=== PATIENT | female | born 1965 ===

== ENCOUNTER 2018-06-26 10:02 | Outpatient (CLI) | payer MEDICAID ==
[2018-06-26 10:40] LABS: BASOPHILS % (AUTO) 1.1 % (0.0-2.0); EOSINOPHILS % (AUTO) 1.4 % (0.0-3.0); HEMATOCRIT 44.3 % (37.0-47.0); HEMOGLOBIN 14.5 G/DL (12.0-16.0); LYMPHOCYTES % (AUTO) 29.5 % (20.0-45.0); MEAN CORPUSCULAR VOLUME 89 FL (80-99); MONOCYTES % (AUTO) 7.2 % (1.0-10.0); NEUTROPHILS % (AUTO) 60.8 % (45.0-75.0); PLATELET COUNT 360 K/UL (150-450); RED BLOOD COUNT 4.96 M/UL (4.20-5.40); WHITE BLOOD COUNT 5.8 K/UL (4.8-10.8)
[2018-06-26 10:53] LABS: ANION GAP 12 mmol/L (5-15); BLOOD UREA NITROGEN 12 mg/dL (7-18); CALCIUM 9.3 MG/DL (8.5-10.1); CARBON DIOXIDE 30 MMOL/L (21-32); CHLORIDE 102 MMOL/L (98-107); CREATININE 0.7 MG/DL (0.55-1.30); POTASSIUM 4.1 MMOL/L (3.5-5.1); SODIUM 144 MMOL/L (136-145)
[2018-06-26 10:56] LABS: APPEARANCE,URINE CLEAR; BILIRUBIN, URINE NEGATIVE (NEGATIVE); COLOR,URINE PALE YELLOW; GLUCOSE, URINE (UA) NEGATIVE (NEGATIVE); KETONES,URINE NEGATIVE (NEGATIVE); LEUKOCYTE ESTERASE ,URINE 2+ (NEGATIVE); NITRITE,URINE NEGATIVE (NEGATIVE); PH,URINE 5 (4.5-8.0); PROTEIN,URINE NEGATIVE (NEGATIVE); UROBILINOGEN,URINE NORMAL MG/DL (0.0-1.0)
== END 2018-06-26 12:02 | disposition home or self-care (01) ==
LOC: EDBD → RAD 10:02
DX: Z01.818 Encounter for other preprocedural examination (principal)
CPT/HCPCS: 36415; 80048; 81001; 85025; 85610; 85730; 93005

== ENCOUNTER 2018-07-01 09:01 | Inpatient (IN) | payer MEDICAID ==
--- NOTE | 2018-06-30 17:30 | Pre-op HX & Phy Repo 2 SIG ---
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 The patient presented earlier this year with left breast pain and screening mammogram was negative, but ultrasound revealed a 1 cm mass of the left breast at 12 o'clock located 1 cm from the nipple. Core biopsy revealed invasive ductal carcinoma and ductal carcinoma in situ. The lesion is estrogen and progesterone receptor positive and HER2 negative. She was seen in consultation with Oncology who recommended proceeding with surgery with additional therapy to be determined based on final pathology. She understands that the nipple/areola complex will need to be resected as the lesion is directly behind the nipple. PAST MEDICAL HISTORY: MEDICATIONS: None. ALLERGIES: None. OPERATIONS: section and cholecystectomy. REVIEW OF SYSTEMS: 4, para 4. She still has regular menstrual periods. FAMILY HISTORY: She has no family history of breast cancer. PHYSICAL EXAMINATION: GENERAL: The patient is 5 foot 3 inches, 173 pounds. VITAL SIGNS: Stable, normal vital signs. HEENT: Within normal limits. LUNGS: Clear. HEART: Regular rhythm. BREASTS: Moderately large and ptotic. There is no palpable mass in either breast. There is no palpable axillary or supraclavicular lymphadenopathy. ABDOMEN: Soft. PELVIC AND RECTAL: Per primary care physician. EXTREMITIES: Without edema. NEUROLOGIC: Physiologic. IMPRESSION: Invasive ductal carcinoma and ductal carcinoma in situ, left breast, ER and [place] positive, HER2 negative. PLAN: I have had a full discussion with the patient regarding the nature of her condition, the nature of the surgery including removal of the nipple/ areola complex, indications, alternatives, options and risks including bleeding, infection, need for additional surgery based on final pathology, scott for additional treatments including radiation and chemotherapy based on final pathology, deformity of the breast, scarring etc. The patient understands and agrees to proceed. The procedure will include left breast partial mastectomy including nipple, with preoperative needle localization. and left axillary lymph node biopsy. Umair Shi M.D. DR: ARMANDO JOB#: [id number] CC: GINETTE
[2018-07-01] VITALS (13 sets, daily range): BP systolic 111–151; BP diastolic 61–86
[~2018-07-01] VITALS: Ht 154.9 cm; Wt 77.7 kg
[~2018-07-01 09:01] MED LIST: Bacitracin 50000 Units Vial ONE
[2018-07-01] MEDS ORDERED: Lidocaine 1% Plain 30 ml INJ ONE (09:20)
[2018-07-01] MEDS ORDERED: Dexamethasone 4mg/ml vial ONE (09:22)
[2018-07-01] MEDS ORDERED: Lidocaine 1% MPF 10mg/ml 5ml ONE ×2 (09:22→11:18)
[2018-07-01] MEDS ORDERED: Sodium Chloride 10ml vial INJ ONE (09:22)
[2018-07-01] MEDS ORDERED: fentaNYL 100 mcg/2 mL IV ONE (09:33)
--- NOTE | 2018-07-01 09:34 | Pre-Procedure Note/Attestation ---
Pre-Procedure Note/Attestation Complete Prior to Procedure Planned Procedure: left Procedure Narrative: left breast partial mastectomy including nipple/areola complex with pre-op needle localization and left axillary lymph node biopsy Indications for Procedure Pre-Operative Diagnosis: invasive ductal carcinoma left breast Attestation I attest that I discussed the nature of the procedure; its benefits; risks and complications; and alternatives (and the risks and benefits of such alternatives ), prior to the procedure, with the patient (or the patient's legal associate sales representative). I attest that, if there was a reasonable possibility of needing a blood transfusion, the patient (or the patient's legal associate sales representative) was given the [place] [employer] standardized written summary, pursuant to the Francisco Emelia Blood Safety Act ([place] Health and Safety Code # 1645, as amended). I attest that I re-evaluated the patient just prior to the surgery and that there has been no change in the patient's H&P, except as documented below: none Umair Shi MD Jul 01, 2018 09:34
--- NOTE | 2018-07-01 09:51 | Anethesia Preoperative Eval ---
Anesthesia Pre-op PMH/ROS General Date of Evaluation: Jul 01, 2018 Time of Evaluation: 09:51 Anesthesiologist: Edu ASA Score: ASA 3 Mallampati Score Class I : Soft palate, uvula, fauces, pillars visible Class II: Soft palate, uvula, fauces visible Class III: Soft palate, base of uvula visible Class IV: Only hard plate visible Mallampati Classification: Class II Surgeon: Yuridia Diagnosis: L Breast CA Surgical Procedure: L Breasr Partial Masectectomy Anesthesia History: none Family History: no anesthesia problems Allergies: Coded Allergies: No Known Allergies (Unverified , 07/01/18) Medications: see eMAR Patient NPO?: Yes Past Medical History Gastrointestinal/Genitourinary: Reports: GERD Neurologic/Psychiatric: Reports: depression/anxiety, other - Migranes Hematology/Immune: Reports: other - L Breast CA Other: obesity - BMI 34 PSxH Narrative: Cholecystectomy Anesthesia Pre-op Phys. Exam Physician Exam Constitutional: NAD Neurologic: CN 2-12 intact Cardiovascular: RRR Respiratory: CTA Gastrointestinal: S/NT/ND Airway Exam Mallampati Score: Class II MO: full ROM: full Teeth: missing, intact Anesthesia Pre-op A/P Risk Assessment & Plan Assessment: ASA 3 Plan: GA, SED Status Change Before Surgery: No Pre-Antibiotics Dru Gram Ancef IV Given Within 1 Hr of Incision: Yes Time Given: 10:06 Yazan Sorensen MD Jul 01, 2018 09:51
--- NOTE | 2018-07-01 09:53 | Immediate Post-Op Evaluation ---
Immediate Post-Op Evalulation Immediate Post-Op Evalulation Procedure: L Breast Partial Mastectomy Date of Evaluation: Jul 01, 2018 Time of Evaluation: 12:14 IV Fluids: 600 LR Blood Products: 0 Estimated Blood Loss: 25 Urinary Output: 0 Blood Pressure Systolic: 133 Blood Pressure Diastolic: 86 Pulse Rate: 78 Respiratory Rate: 16 O2 Sat by Pulse Oximetry: 100 Temperature (Fahrenheit): 97 Pain Score (1-10): 2 Nausea: No Vomiting: No Complications 0 Patient Status: awake, reacts, patent, none Hydration Status: adequate Dru Gram Ancef IV Given Within 1 Hr of Incision: Yes Time Given: 10:06 Yazan Sorensen MD Jul 01, 2018 09:53
[2018-07-01] MEDS ORDERED: NKM (09:58)
[2018-07-01] MEDS ORDERED: Sterile Water Irrig 1000ml IRRIG ONE (10:00)
[2018-07-01] MEDS ORDERED: Propofol 1,000mg/ 100ml btl IV ONE (10:00)
[2018-07-01] MEDS ORDERED: NS Irrig 1000ml ONE (10:00)
[2018-07-01] MEDS ORDERED: LR 1000ml ONE (10:00)
[2018-07-01] MEDS ORDERED: LR 1000ml 1,000 ML IVLG SCH (10:25)
[2018-07-01] MEDS ORDERED: Atropine Sulfate 0.4mg/ml inj IVP PRN (10:30)
[2018-07-01] MEDS ORDERED: DiphenhydrAMINE 50mg/ml Inj IVP PRN (10:30)
[2018-07-01] MEDS ORDERED: Acetaminophen (Non formulary) 100 ML IV ONE (10:30)
[2018-07-01] MEDS ORDERED: oxyCODONE HCL/Acetaminophen 5/325mg ORAL PRN (10:30)
[2018-07-01] MEDS ORDERED: Ketorolac 30mg Inj IV PRN ×2 (10:30)
[2018-07-01] MEDS ORDERED: HYDROcodone/Acetamin 5/325 tab ORAL PRN ×2 (10:30→12:00)
[2018-07-01] MEDS ORDERED: Midazolam 2mg/2ml Inj IVP PRN (10:30)
[2018-07-01] MEDS ORDERED: Meperidine 50mg/ml Inj(FOR RIGORS ONLY) IVP PRN (10:30)
[2018-07-01] MEDS ORDERED: fentaNYL 100 mcg/2 mL IV PRN (10:30)
[2018-07-01] MEDS ORDERED: Hydromorphone 0.5mg/0.5ml inj IVP PRN (10:30)
[2018-07-01] MEDS ORDERED: HYDROcodone/Acetamin 7.5/325 tab ORAL PRN (10:30)
[2018-07-01] MEDS ORDERED: LORazepam Inj 2mg/ml 1ml IV PRN (10:30)
[2018-07-01] MEDS ORDERED: HYDROmorphone 1mg/ml Carpuject SUBQ PRN (12:00)
--- NOTE | 2018-07-01 12:17 | Brief Operative Note ---
Immediate Post Operative Note Operative Note Pre-op Diagnosis: invasive ductal carcinoma left breast Procedure: right breast partial mastectomy with pre-op needle localization and left axillary lymph node dissection Post-op Diagnosis: same Post-op Diagnosis: same as pre-op Findings: consistent w/pre-op dx studies Surgeon: mary grace Anesthesiologist: ferny Anesthesia: general Specimen: yes - partial mastectomy including nipple, additional margin, inter- perctoral node, axillary nodes Complications: none Condition: stable Fluids: see anesthesia record Estimated Blood Loss: minimal Drains: SRIDHAR Implant(s) used?: No Umair Shi MD Jul 01, 2018 12:17
--- NOTE | 2018-07-01 12:45 | NUR ---
UNABLE TO SCAN MEDICATION WITH SCANNER
[2018-07-01] MEDS: Metoclopramide 10mg/2ml Inj IVP PRN (13:00)
--- NOTE | 2018-07-01 13:30 | NUR ---
NURSE NOTES: Patient arrived to unit via hospital bed. Patient is stable with no SOB or distress. Denies pain at this time. Patient is encouraged to use call light for assistance, verbalized understanding. Patient is awake and able to verbalize needs. Patient has all belongings, checked by 2 RN. Patient's family is at bedside. Skin is clean, dry, and intact. Surgical site clean, dry, and intact. SRIDHAR drain in place, 0cc output noted in bulb. Patient oriented to room, call light, and unit. Patient comfortable in bed with call light within reach. Will continue to monitor.
[2018-07-01] MEDS: D5 1/2NS w/KCl 20mEq 1,000 ML IV SCH (15:39)
--- NOTE | 2018-07-01 17:33 | NUR ---
CASE MANAGEMENT: INITIAL REVIEW 52 YO F PRESENTED TO [facility] CC: LEFT BREAST CA PMHx: GERD. SI:BREAST CANCER. T 97.2 HR 69 RR 16 B/P 117/69 SATS 98% ON 3L/NC HCG (-) IS: IVF @ 100 mL/HR CEFAZOLIN IV Q8H PATIENT ADMITTED TO MED/SURG 07/01/2018 @ 6590 DCP: PATIENT TO BE DISCHARGED TO HOME ONCE MEDICALLY CLEARED. PLAN OF CARE: Pre-Operative Diagnosis: invasive ductal carcinoma left breast Procedure Narrative: left breast partial mastectomy including nipple/areola complex with pre-op needle localization and left axillary lymph node biopsy Addendum: 07/01/18 at 1933 by Shayy Ellis CM INTERQUAL MET
[2018-07-01] MEDS: ceFAZolin sod 1 GM in D5W 55 ML IV SCH (18:37)
--- NOTE | 2018-07-01 19:00 | NUR ---
NURSE NOTES: SRIDHAR draining well. 10cc output during shift. Patient able to ambulate with assist, tolerated well. Assisted patient to bathroom, voided x1, no complaints of burning, pain, or discomfort. Assisted back to bed with call light within reach. WIll continue to monitor.
--- NOTE | 2018-07-01 19:20 | NUR ---
NURSE NOTES: Received a report from PRASNANA Donato. Pt is in stable condition. AAOX4. Able to make needs known. No respiratory distress noted. On room air. No c/o pain/discomfort. IV site is patent and intact. SRIDHAR drain on the left breast is draining. Dressing on the L breast is intact and dry. Family at the bedside. Bed in lowest position. Call light within reach. Will continue to monitor.
--- NOTE | 2018-07-01 19:30 | NUR ---
HAND-OFF: Report given to Clara MIMS. Patient is stable.
--- NOTE | 2018-07-01 20:00 | NUR ---
NURSE NOTES: SRIDHAR draining well.
[2018-07-02] VITALS: BP 111/59
--- NOTE | 2018-07-02 | NUR ---
NURSE NOTES: SRIDHAR draining well.
[2018-07-02] MEDS: D5 1/2NS w/KCl 20mEq 1,000 ML IV SCH (01:16)
[2018-07-02] MEDS: ceFAZolin sod 1 GM in D5W 55 ML IV SCH (01:20)
--- NOTE | 2018-07-02 02:45 | Operative Note - Dictated ---
DATE OF OPERATION: 07/01/2018 SURGEON: Umair Shi M.D. TAPING FOREMAN: None. ANESTHESIOLOGIST: Yazan Sorensen M.D. TYPE OF ANESTHESIA: General. PREOPERATIVE DIAGNOSIS: Invasive ductal carcinoma and ductal carcinoma in situ, left breast. POSTOPERATIVE DIAGNOSIS: Invasive ductal carcinoma and ductal carcinoma in situ, left breast. OPERATION PERFORMED: Left breast partial mastectomy including the nipple areolar complex and left axillary lymph node dissection. DESCRIPTION OF PROCEDURE: The patient was taken to the operating room and under general anesthesia with sequential compression device stockings in place, she was prepped and draped in the usual fashion. The lesion was located at 1 o'clock close to the nipple and the patient understood preoperatively that the nipple would be resected. A transverse elliptical incision was made and flaps dissected circumferentially achieving hemostasis with cautery. During the dissection, the hook wire fell out, but clip was still present. The appropriate sector of breast tissue was resected down to the chest wall, achieving hemostasis with cautery. The specimen was oriented medial and superior with the nipple anterior. Specimen radiograph was performed revealing the presence of the lesion. Inspection by pathology revealed a close margin superior posterior sector and additional tissue was excised orienting it for the pathologist. The field was irrigated with water and antibiotic solution. Hemostasis was secured. Incision was closed with interrupted 3-0 Vicryl deep dermal subcutaneous sutures followed by continuous 4-0 Monocryl subcuticular suture. Left axillary incision was made achieving hemostasis with cautery and incising the clavipectoral fascia. There were 2 fairly large sentinel nodes and several additional nodes. The lower level dissection was performed using the Thunderbeat device. One additional interpectoral node was removed separately for pathology. The field was irrigated and hemostasis was secured. Through a separate stab incision inferolateral, a 19 mm round Saulo drain was placed into the axilla and sutured to the skin with 2-0 nylon. The axillary incision was closed with interrupted 3-0 Vicryl in clavipectoral fascia and then an interrupted 3-0 Vicryl subcutaneous sutures followed by continuous 4-0 Monocryl subcuticular suture. Mastisol and half-inch Steri-Strips were applied to both incisions followed by dry sterile dressings and a post partial mastectomy surgical brassiere were applied. The patient tolerated the procedure well and left the operating room in good condition. Don Amy Shi DR: DANIEL JOB#: [id number] CC:
[2018-07-02 04:00] VITALS: BP 119/63
--- NOTE | 2018-07-02 04:00 | NUR ---
NURSE NOTES: SRIDHAR draining well.
--- NOTE | 2018-07-02 05:26 | NUR ---
NURSE NOTES: Emptied SRIDHAR drainage of 38cc. SRIDHAR is draining well. Will continue to monitor.
--- NOTE | 2018-07-02 07:10 | NUR ---
HAND-OFF: Report given to PRASANNA Donato.
--- NOTE | 2018-07-02 07:15 | NUR ---
NURSE NOTES: Patient is awake and able to verbalize needs. Patient is comfortable, stable, and denies pain at this time. Breathing is even and unlabored. Patient encouraged to use call light for assistance. SRIDHAR drain patent and draining, very little output noted at this time, will continue to monitor drain. Patient is comfortable in bed with call light within reach. Will continue to monitor.
--- NOTE | 2018-07-02 07:46 | 48 Hour Post Anesthesia Eval ---
Post Anesthesia Evaluation Procedure: L Breast Partial Mastectomy Date of Evaluation: Jul 02, 2018 Time of Evaluation: 06:18 Blood Pressure Systolic: 119 0: 63 Pulse Rate: 76 Respiratory Rate: 18 Temperature (Fahrenheit): 98.5 O2 Sat by Pulse Oximetry: 97 Airway: patent Nausea: No Vomiting: No Pain Intensity: 2 Hydration Status: adequate Cardiopulmonary Status: Stable Mental Status/LOC: patient returned to baseline Follow-up Care/Observations: 0 Post-Anesthesia Complications: 0 Follow-up care needed: N/A Yazan Sorensen MD Jul 02, 2018 07:46
[2018-07-02 08:00] VITALS: BP 124/72
--- NOTE | 2018-07-02 08:10 | NUR ---
CASE MANAGEMENT:REVIEW 07/02/18 SI: POD #1 S/P LT BREAST MASTECTOMY 98.5 76 18 119/63 97% ON RA IS: IV ANCEF Q8HRS IVF@100/HR : MED/SURG STATUS 3 EAST PLAN: AMBULATE TEACH CARE OF SRIDHAR
[2018-07-02 12:00] VITALS: BP 119/48
--- NOTE | 2018-07-02 13:12 | General Progress Note ---
Progress Note Progress Note AVSS Has done well overnight with 38cc SRIDHAR drainage and now 40cc lymph/sero-sang left breast and axilla incisions clean with intact steristrips Imp. doing well Plan; discharge with surgical bra, supplies, SRIDHAR drain f/u office 07/08 - call prn instructions/limitations discussed Umair Shi MD Jul 02, 2018 13:12
--- NOTE | 2018-07-02 14:30 | NUR ---
NURSE NOTES: Patient discharged home as ordered. Patient is AOx4 and stable. Skin is clean, dry, and intact. Surgical site is clean, dry, intact, dressing changed today. Thorough discharge instructions given, patient and family verbalized understanding. Patient instructed to follow up with MD as discussed previously with Dr. Shi. Denies pain or SOB. Patient has all belongings. IV removed without complications. Patient was assisted downstairs by RN.
--- NOTE | 2018-07-03 07:57 | Discharge Summary ---
Discharge Summary Discharge Summary _ DATE OF ADMISSION: 07/01/2018 DATE OF DISCHARGE: 07/02/2018 DISCHARGED BY: Dr. 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 The patient presented earlier this year with left breast pain and screening mammogram was negative, but ultrasound revealed a 1 cm mass of the left breast at 12 o'clock located 1 cm from the nipple. Core biopsy revealed invasive ductal carcinoma and ductal carcinoma in situ. The lesion is estrogen and progesterone receptor positive and HER2 negative. She was seen in consultation with Oncology who recommended proceeding with surgery with additional therapy to be determined based on final pathology. BRIEF HOSPITAL COURSE: Patient was admitted on 07/01/2018 and underwent left breast partial mastectomy including the nipple areolar complex and left axillary lymph node dissection. The patient tolerated the procedure well and left the operating room in good condition. Postoperatively, she was admitted for postop care. She was given IV hydration. Diet was advanced. She was placed on SCDs for DVT prophylaxis. She was given incentive spirometer. She was encouraged ambulation and out of bed. She was tolerating diet well. IV fluid was discontinued. She was instructed on how to care for the SRIDHAR drain. Left breast and axilla incisions were clean with intact Steri-Strips. She was eventually cleared for discharge home. PREOPERATIVE DIAGNOSIS: Invasive ductal carcinoma and ductal carcinoma in situ, left breast. POSTOPERATIVE DIAGNOSIS: Invasive ductal carcinoma and ductal carcinoma in situ, left breast. OPERATION PERFORMED: Left breast partial mastectomy including the nipple areolar complex and left axillary lymph node dissection. DISPOSITION: Patient was discharged home. DISCHARGE MEDICATIONS: Refer to Discharge Medication List. DISCHARGE INSTRUCTIONS: Follow-up on 07/08/2018. I have been assigned to complete a discharge summary on this account, I was not involved with the patient's management. Naila Gallardo NP Jul 03, 2018 07:57
== END 2018-07-02 15:12 | disposition home or self-care (01) | DRG 363 ==
LOC: EDBD → SUR 09:01 → MERGE 12:00 → 3E 15:14
PROC: 07B60ZX Excision of Left Axillary Lymphatic, Open Approach, Diagnostic (ICD-10-PCS; 2018-07-01)
PROC: 0HBU0ZZ Excision of Left Breast, Open Approach (ICD-10-PCS; principal; 2018-07-01 09:00)
DX: C50.812 Malignant neoplasm of overlapping sites of left female breast (principal); Z17.0 Estrogen receptor positive status [ER+]
CPT/HCPCS: 81025; 94003; 94150; J2405; J2765